=== PATIENT | female | born 1950 | race American Indian/Alaskan Native ===

== ENCOUNTER 2017-12-28 13:57 | Outpatient (CLI) | payer MEDICAID | END 2017-12-28 13:58 | disposition home or self-care (01) | LOC: PET 13:57 | PROVIDERS: ATTEND Internal Medicine Hematology & Oncology | DX: C50.911 Malignant neoplasm of unspecified site of right female breast (principal); E11.9 Type 2 diabetes mellitus without complications; I10 Essential (primary) hypertension; E78.00 Pure hypercholesterolemia, unspecified; F32.9 Major depressive disorder, single episode, unspecified; F41.9 Anxiety disorder, unspecified; Z79.899 Other long term (current) drug therapy | CPT/HCPCS: 82962 ==

== ENCOUNTER 2018-05-24 17:07 | Emergency (ER) | payer MEDICAID ==
[2018-05-24 17:59] LABS: Basophils # (Auto) 0.1 K/mm3 (0.0-0.1); Basophils % (Auto) 1.2 % (0.0-1.8); Eosinophils % (Auto) 0.7 % (0.0-4.3); Hematocrit 37.2 % (30.3-42.9); Hemoglobin 12.2 gm/dl (10.1-14.3); Lymphocytes # (Auto) 1.7 K/mm3 (1.2-5.4); Lymphocytes % (Auto) 28.8 % (13.4-35.0); Mean Corpuscular HGB Conc 33 % (30-34); Mean Corpuscular Hemoglobin 27 pg (28-32); Mean Corpuscular Volume 83 fl (79-97); Monocytes # (Auto) 0.4 K/mm3 (0.0-0.8); Monocytes % (Auto) 6.9 % (0.0-7.3); Platelet Count 200 K/mm3 (140-440); Red Blood Count 4.49 M/mm3 (3.65-5.03); Red Cell Distribution Width 14.4 % (13.2-15.2)
[2018-05-24 18:24] LABS: Alanine Aminotransferase 16 units/L (7-56); Albumin 3.4 g/dL (3.9-5); BUN/Creatinine Ratio 17; Blood Urea Nitrogen 17 mg/dL (7-17); Calcium 9.4 mg/dL (8.4-10.2); Hemolysis Index 0
[2018-05-25 00:10] LABS: Bacteria,Urine 4+ /HPF (Negative); Bilirubin,Urine NEG (Negative); Blood,Urine SM (Negative); Color,Urine Yellow (Yellow); Mucus,Urine FEW /HPF; Urobilinogen,Urine < 2.0 mg/dL (<2.0)
--- NOTE | 2018-05-25 00:50 | Emergency Department Report ---
<BHARAT MOE - Last Filed: 05/25/18 01:21> ED General Adult HPI - General Chief complaint: Dizziness Stated complaint: VOMITING Time Seen by Provider: 05/25/18 00:45 Source: patient Mode of arrival: Wheelchair Limitations: No Limitations - History of Present Illness Initial comments: Patient complains with dizziness today, worse when she stands up, with intermittent bouts of vomiting as well. Past medical history significant for insulin-dependent diabetes, hypertension, chronic kidney disease, stage III, past history of right breast cancer, 15 years ago, but no prior history of myocardial infarction or known coronary artery disease. - Related Data Home Medications Medication Instructions Recorded Confirmed Last Taken Amitriptyline [Elavil] 25 mg PO QHS 07/22/15 08/26/15 08/25/15 21:00 Bimatoprost [Lumigan 0.01%] 1 drop OP QPM 07/22/15 08/26/15 08/25/15 21:00 Brimonidine/Timolol 0.2-0.5% 1 drops OP Q12H 07/22/15 08/26/15 08/25/15 21:00 [Combigan 0.2-0.5%] Clopidogrel [Plavix] 75 mg PO QDAY 07/22/15 08/24/15 1 Week Ago ~08/17/15 HYDROcodone/APAP 7.5-325 [[place] 1 each PO Q6HR PRN 07/22/15 08/26/15 2 Weeks Ago 7.5/325] ~08/12/15 Hydralazine HCl [Apresoline TAB] 50 mg PO BID 07/22/15 08/26/15 08/25/15 21:00 Insulin Lispro Prot/Lispro 10 unit SQ QPM 07/22/15 08/26/15 08/25/15 21:00 [HumaLOG Mix 75/25 Vial] Insulin Lispro Prot/Lispro 12 unit SQ BIDDIAB 07/22/15 08/26/15 08/25/15 12:00 [HumaLOG Mix 75/25 Vial] Losartan [Cozaar] 100 mg PO QDAY 07/22/15 08/26/15 08/25/15 10:00 Metoprolol [Lopressor TAB] 50 mg PO BID 07/22/15 08/26/15 08/25/15 21:00 Multivitamin Tab [Multiple Vitamin 1 each PO QDAY 07/22/15 08/26/15 08/25/15 10: 00 TAB (Theragran)] Diazepam [Valium] 12.5 mg PO Q8H PRN 08/24/15 08/26/15 1 Week Ago ~08/19/15 ISOSORBIDE MONOnitrate [Imdur ER] 30 mg PO DAILY 08/24/15 08/26/15 08/25/15 10: 00 Pravastatin Sodium [Pravastatin] 10 mg PO QHS 08/24/15 08/26/15 08/25/15 21:00 Previous Rx's Medication Instructions Recorded Last Taken Type HYDROcodone/APAP 5-325 [[place] 1 each PO Q6HR PRN #30 tablet 08/26/15 Unknown Rx 5/325] Nitrofurantoin Hand/M-Cryst 100 mg PO ONCE #14 capsule 05/25/18 Unknown Rx [Macrobid CAP] Ondansetron [Zofran ODT TAB] 8 mg PO Q8HR PRN #10 tab.rapdis 05/25/18 Unknown Rx Allergies Allergy/AdvReac Type Severity Reaction Status Date / Time Penicillins Allergy Hives Verified 07/22/15 15:53 promethazine Allergy Nausea Verified 07/22/15 15:53 ED Review of Systems ROS: Stated complaint: VOMITING Other details as noted in HPI ED Past Medical Hx - Past Medical History Hx Hypertension: Yes (FOR 9 YRS, DR[address] URENA- PCP;[facility] ) Hx Heart Attack/AMI: No Hx Diabetes: Yes (FOR 36 YRS; IDDM) Hx Renal Disease: Yes (CKD III) Hx Arthritis: Yes (BACK ) - Surgical History Hx Breast Surgery: Yes (RIGHT BREAST CORE BX 06-16-15) - Social History Smoking Status: Never Smoker Substance Use Type: None - Medications Home Medications: Home Medications Medication Instructions Recorded Confirmed Last Taken Type Amitriptyline [Elavil] 25 mg PO QHS 07/22/15 08/26/15 08/25/15 21:00 History Bimatoprost [Lumigan 0.01%] 1 drop OP QPM 07/22/15 08/26/15 08/25/15 21:00 History Brimonidine/Timolol 0.2-0.5% 1 drops OP Q12H 07/22/15 08/26/15 08/25/15 21:00 History [Combigan 0.2-0.5%] Clopidogrel [Plavix] 75 mg PO QDAY 07/22/15 08/24/15 1 Week Ago History ~08/17/15 HYDROcodone/APAP 7.5-325 [[place] 1 each PO Q6HR PRN 07/22/15 08/26/15 2 Weeks Ago History 7.5/325] ~08/12/15 Hydralazine HCl [Apresoline TAB] 50 mg PO BID 07/22/15 08/26/15 08/25/15 21:00 History Insulin Lispro Prot/Lispro 10 unit SQ QPM 07/22/15 08/26/15 08/25/15 21:00 History [HumaLOG Mix 75/25 Vial] Insulin Lispro Prot/Lispro 12 unit SQ BIDDIAB 07/22/15 08/26/15 08/25/15 12:00 History [HumaLOG Mix 75/25 Vial] Losartan [Cozaar] 100 mg PO QDAY 07/22/15 08/26/15 08/25/15 10:00 History Metoprolol [Lopressor TAB] 50 mg PO BID 07/22/15 08/26/15 08/25/15 21:00 History Multivitamin Tab [Multiple Vitamin 1 each PO QDAY 07/22/15 08/26/15 08/25/15 10: 00 History TAB (Theragran)] Diazepam [Valium] 12.5 mg PO Q8H PRN 08/24/15 08/26/15 1 Week Ago History ~08/19/15 ISOSORBIDE MONOnitrate [Imdur ER] 30 mg PO DAILY 08/24/15 08/26/15 08/25/15 10: 00 History Pravastatin Sodium [Pravastatin] 10 mg PO QHS 08/24/15 08/26/15 08/25/15 21:00 History HYDROcodone/APAP 5-325 [[place] 1 each PO Q6HR PRN #30 tablet 08/26/15 Unknown Rx 5/325] Nitrofurantoin Hand/M-Cryst 100 mg PO ONCE #14 capsule 05/25/18 Unknown Rx [Macrobid CAP] Ondansetron [Zofran ODT TAB] 8 mg PO Q8HR PRN #10 tab.rapdis 05/25/18 Unknown Rx ED Physical Exam - General Limitations: No Limitations General appearance: alert, in no apparent distress - Head Head exam: Present: atraumatic, normocephalic - Eye Eye exam: Present: PERRL, EOMI - ENT ENT exam: Present: normal exam, mucous membranes moist - Neck Neck exam: Present: normal inspection, full ROM. Absent: tenderness - Respiratory Respiratory exam: Present: normal lung sounds bilaterally. Absent: respiratory distress, wheezes, rales, rhonchi, chest wall tenderness - Cardiovascular Cardiovascular Exam: Present: regular rate, normal heart sounds - GI/Abdominal GI/Abdominal exam: Present: soft, normal bowel sounds. Absent: tenderness, guarding, rebound - Rectal Rectal exam: Present: deferred - Extremities Exam Extremities exam: Present: normal inspection, other (limited movement on left due to chronic low back pain, heel to calvillo not performed due to neuropathy). Absent: tenderness - Back Exam Back exam: Present: tenderness (left lower back, chronic, source of chronic back pain). Absent: CVA tenderness (R), CVA tenderness (L), muscle spasm, rash noted - Neurological Exam Neurological exam: Present: alert, oriented X3, CN II-XII intact, reflexes normal, other (normal finger to nose, heel to calvillo not performed due to neuropathy). Absent: motor sensory deficit - Psychiatric Psychiatric exam: Present: normal affect, normal mood - Skin Skin exam: Present: warm, dry, normal color. Absent: rash, cyanosis - Other Other exam information: [place] negative bilaterally ED Course Vital Signs 05/24/18 05/25/18 17:16 01:28 Temperature 97.8 F 98.1 F Pulse Rate 87 92 H Respiratory 16 18 Rate Blood Pressure 189/86 Blood Pressure 170/84 [Left] O2 Sat by Pulse 96 96 Oximetry ED Medical Decision Making - Lab Data Result diagrams: 05/24/18 17:29 05/24/18 17:29 Urinalysis significant for urinary tract infection, with 4+ bacteriuria, 65 white cells, large leukocyte esterase. - Medical Decision Making Patient has nonspecific findings of dizziness, primarily with postural changes, which may be secondary to mild autonomic neuropathy, and likely exacerbated by underlying urinary tract infection. She has no systemic symptoms, has normal white count, no fever, and no costovertebral angle tenderness on either side. This appears to be a lower urinary tract infection, and patient is clinically stable, can be treated on an outpatient. Glucose is stable, there is no signs of acidosis. Nonetheless, with her treatment, and began a diabetic, I will recommend that she have follow-up with her doctor next week. She may continue other medication as before, and given that she's had some intermittent nausea, loss of give her a supplemental prescription of antiemetics in case nausea returns. Critical Care Time: No Critical care attestation.: If time is entered above; I have spent that time in minutes in the direct care of this critically ill patient, excluding procedure time. ED Disposition Disposition: - TO HOME OR SELFCARE Is pt being admited?: No Does the pt Need Aspirin: No Condition: Stable Instructions: Urinary Tract Infection in Women (ED), Diabetes Mellitus Type 2 in Adults (ED) Additional Instructions: Examination today is stable, there is no signs of neurologic weakness, chest is clear, heart is stable, but urinalysis shows signs of infection, but there is no signs of systemic infection, and your stable to be treated at home with Macrodantin, twice daily, with close follow-up with your doctor next week at the beginning portion of the week. Continue your other medications, including insulin, as before, and you may be up and around the house, but we recommend avoiding significant exertion until you're feeling better, and dizziness has resolved. Be sure to drink plenty of fluids to stay hydrated, and to maintain urination as well as before. Current the beginning of the week next week, have repeat urinalysis, and other blood work as necessary. If you don't feel like you're getting any better, or have any worsening of any symptoms, return to the emergency department, for additional evaluation. Prescriptions: Nitrofurantoin Hand/M-Cryst [Macrobid CAP] 100 mg PO ONCE #14 capsule Ondansetron [Zofran ODT TAB] 8 mg PO Q8HR PRN #10 tab.rapdis PRN Reason: Nausea Referrals: PRIMARY CARE, [Primary Care Provider] - 3-5 Days Time of Disposition: 01:27 <LUIS ORTEGA - Last Filed: 05/25/18 12:55> ED Course - Reevaluation(s) Reevaluation #1: 05/25/18 12:54 received call from pharmacy verifying Macrobid dose frequency. Informed that pt should take the tabs BID (not QD) ED Medical Decision Making - Lab Data Result diagrams: 05/24/18 17:29 05/24/18 17:29
[2018-05-25] MEDS ORDERED: MACROBID PO ONE (01:20)
[2018-05-25 01:29] VITALS: BP 170/84
== END 2018-05-25 01:59 | disposition home or self-care (01) ==
LOC: ED 17:07
DX: I13.0 Hypertensive heart and chronic kidney disease with heart failure and stage 1 through stage 4 chronic kidney disease, or unspecified chronic kidney disease (principal); E11.22 Type 2 diabetes mellitus with diabetic chronic kidney disease; N18.3 Chronic kidney disease, stage 3 (moderate); M19.90 Unspecified osteoarthritis, unspecified site; Z85.3 Personal history of malignant neoplasm of breast; Z79.4 Long term (current) use of insulin; Z88.0 Allergy status to penicillin; Z88.8 Allergy status to other drugs, medicaments and biological substances
CPT/HCPCS: 36415; 80053; 81001; 85025; 93005; 93010; 99283

== ENCOUNTER 2020-10-13 13:20 | Outpatient (CLI) | payer MEDICAID ==
--- NOTE | 2020-10-15 08:39 | Mammography Report ---
DIGITAL SCREENING MAMMOGRAM WITH CAD, 10/13/2020 CLINICAL INFORMATION / INDICATION: Routine screening mammography. TECHNIQUE: Digital bilateral 2D mammography was obtained in the craniocaudal and mediolateral obliqu e projections. This examination was interpreted with the benefit of Computer-Aided Detection analysis . COMPARISON: 08/06/2018, 08/04/2017 FINDINGS: Breast Density: The breasts are heterogeneously dense, which may obscure small masses. No dominant mass, suspicious calcifications, or architectural distortion in either breast. Diffuse bilateral vascular calcifications and other scattered benign calcifications are unchanged. Th ere is stable right breast skin thickening. IMPRESSION: No mammographic evidence of malignancy. Follow up recommendation: Routine yearly BI-RADS Category 2: Benign. A "normal" or negative report should not discourage follow up or biopsy of a clinically significant f inding. A written summary of these findings will be mailed to the patient. The patient will be entered into a mammography reporting system which will generate a reminder letter for the patient's next appointmen t at the appropriate interval. The [employer] recommends yearly mammograms starting at age 40 and continuing as l junaid as a woman is in good health. Breast MRI is recommended for women with an approximate 20-25% or greater lifetime risk of breast cancer, including women with a strong family history of breast or ova malinda cancer or who have been treated for Hodgkin's disease. Signer Name: Bc Gill MD Signed: 10/15/2020 8:35 AM Workstation Name: [id number]
== END 2020-10-13 13:21 | disposition home or self-care (01) ==
LOC: SPVWC 13:20
PROVIDERS: ATTEND Surgery
DX: Z12.31 Encounter for screening mammogram for malignant neoplasm of breast (principal)
CPT/HCPCS: 77067

== ENCOUNTER 2021-10-21 11:09 | Outpatient (CLI) | payer MEDICAID ==
--- NOTE | 2021-10-22 13:51 | Mammography Report ---
DIGITAL SCREENING MAMMOGRAM WITH CAD, 10/21/2021 CLINICAL INFORMATION / INDICATION: Routine screening mammography. SCREENING MAMMO TECHNIQUE: Digital bilateral 2D mammography was obtained in the craniocaudal and mediolateral obliqu e projections. This examination was interpreted with the benefit of Computer-Aided Detection analysis . COMPARISON: 10/13/2020, 08/06/2018 FINDINGS: Breast Density: The breasts are heterogeneously dense, which may obscure small masses. No dominant mass, suspicious calcifications, or architectural distortion in either breast. Benign calcified locations are noted within the bilateral breasts. There is postsurgical change to th e right breast. IMPRESSION: No mammographic evidence of malignancy. Follow up recommendation: Routine yearly BI-RADS Category 2: Benign. A "normal" or negative report should not discourage follow up or biopsy of a clinically significant f inding. A written summary of these findings will be mailed to the patient. The patient will be entered into a mammography reporting system which will generate a reminder letter for the patient's next appointmen t at the appropriate interval. The [employer] recommends yearly mammograms starting at age 40 and continuing as l junaid as a woman is in good health. Breast MRI is recommended for women with an approximate 20-25% or greater lifetime risk of breast cancer, including women with a strong family history of breast or ova malinda cancer or who have been treated for Hodgkin's disease. Signer Name: Dajuan Alexandra DO Signed: 10/22/2021 1:47 PM Workstation Name: [id number]
== END 2021-10-21 11:10 | disposition home or self-care (01) ==
LOC: SPVWC 11:09
PROVIDERS: ATTEND Surgery
DX: Z12.31 Encounter for screening mammogram for malignant neoplasm of breast (principal)
CPT/HCPCS: 77067